=== PATIENT | female | born 1965 | race Caucasian/White ===

== ENCOUNTER → 2025-07-09 | Outpatient (CLI) | payer OTHER ==
[~2025-07-09] MED LIST: DIAZ5TAB PO; INSU100I31 SQ; INSU100V SQ; INSU100V8 SQ; LEVO50TA6 PO; METO25TA4 PO
== END | disposition home or self-care (01) ==
LOC: RAD 09:04
DX: R05.1 Acute cough (principal); R05.9 Cough, unspecified; R07.1 Chest pain on breathing; M47.814 Spondylosis without myelopathy or radiculopathy, thoracic region
CPT/HCPCS: 71046